=== PATIENT | male | born 1930 | race African-American/Black ===

== ENCOUNTER → 2016-06-14 | Outpatient (CLI) | payer MEDICARE, OTHER ==
[~2016-06-14] MED LIST: AGGRENOX PO; ALBUTEROL17 GM INH; ANUSOL SUPP1 SUPP PR; APRESOLINE PO; ARICEPT PO; ARTHRITIS MED; ASPIRIN81 MG PO; ATORVASTATIN CA10 MG; AVADART; AVODART0.5 MG PO; BIPAP; BLOOD PRESSURE; CALCIUM 500 + D1 TAB PO; CLONIDINE PO; COLACE PO; COMBIVENT U/D3 M3; DARVOCET-N 1001 TAB PO; ESTER C PO; FERROUS SULFATE PO; FLOMAX0.4 MG PO; FOLIC ACID PO; HYDROCODON-ACE1 EAC5 PO; JANUVIA PO; KLONOPIN PO; LASIX PO; LASIX20 MG PO; LIPITOR PO; LISINOPRIL PO; LOPRESSOR PO; MIRALAX255 GM PO; NABUMETONE PO; NASONEX17 GM; NEXIUM PO; NORVASC PO; OYSTER CALCIUM500 MG PO; PLAVIX PO; PROCTOFOAM-HC 110 GM RC; PROSCAR5 MG; QVAR7.3 G1 IH; RISPERIDONE PO; SLOW RELEASE47.5 MG; SODIUM BIC; SYNTHROID PO; VITAMIN C PO; VITAMIN D2400 UNIT; VITAMIN D31 GM; ZYRTEC PO; [UNRECOGNIZED DRUG - REMARK]
--- NOTE | ~2016-06-14 | CR63 ---
[facility]. [facility] A Service of [facility] & [facility] RADIOLOGY TEXT RESULTS PATIENT: ANASTASIYA FELIPE LOCATION: [facility] : 30 UNIT #: [id number] AGE: [address]: Barrett Garcia MD SEX: M ORDER DR: [id number] [place] [id number] O MR#: [id number] Acc #: [id number] NAME: ANASTASIYA FELIPE : 1930 SEX: M STUDY DATE/TIME: 06/14/2016 18:46 UNIT: [facility] ROOM: STUDY DESCRIPTION: CR Chest 2 View Attending Physician: Barrett Garcia M.D. Referring Physician: Barrett Garcia M.D. Ordering Physician: Barrett Garcia M.D. Primary Care Physician: Oscar Null Jr., M.D. MEDICAL IMAGING REPORT This report is preliminary unless electronic signature is present. EXAM Chest INDICATION Dialysis patient. Annual chest radiograph. Hypertension. Cardiomegaly. FINDINGS PA and lateral views of the chest compared to 04/16/2015. The heart is at the upper limits of normal, unchanged. Mild prominence of the thoracic aorta is also unchanged. Lungs are hyperinflated compatible with obstructive lung disease. No focal consolidation. Mild chronic interstitial airspace opacities are similar to the prior exam. IMPRESSION Background COPD. No acute findings. Dictated by... Chacorta Hua M.D. THIS IS AN ELECTRONICALLY VERIFIED REPORT Chacorta Hua M.D. at 06/16/2016 2:11 PM Johny TD: 06/15/2016 17:54 JOB #: [id number] MEDICAL IMAGING REPORT Page 1 of 1
== END | disposition home or self-care (01) ==
LOC: SRAD 18:34
DX: Z11.1 Encounter for screening for respiratory tuberculosis (principal)
CPT/HCPCS: 71020

== ENCOUNTER 2016-06-17 22:18 | Emergency (ER) | payer MEDICARE, OTHER ==
--- NOTE | ~2016-06-17 | CR173 ---
[facility] A Service of [facility] RADIOLOGY TEXT RESULTS PATIENT: ANASTASIYA FELIPE LOCATION: SED : 30 UNIT #: [id number] AGE: [address]: Lg Griffin MD SEX: M ORDER DR: [id number] [place] [id number] E MR#: [id number] Acc #: [id number] NAME: ANASTASIYA FELIPE : 1930 SEX: M STUDY DATE/TIME: 06/17/2016 22:33 UNIT: SED ROOM: STUDY DESCRIPTION: CR Knee 3 Views Rt Attending Physician: Lg Griffin M.D. Ordering Physician: Lg Griffin M.D. Primary Care Physician: Oscar Null Jr., M.D. MEDICAL IMAGING REPORT This report is preliminary unless electronic signature is present. EXAM Right knee series, 06/17/2016 INDICATION Right knee pain after a fall today. PROCEDURE 3 views right knee. COMPARISON None. FINDINGS Severe tricompartmental arthrosis. No acute fracture or dislocation. Small joint effusion. IMPRESSION 1. No acute findings. 2. Significant tricompartmental arthrosis and a small joint effusion. Dictated by... Santos White M.D. THIS IS AN ELECTRONICALLY VERIFIED REPORT Santos White M.D. at 06/18/2016 10:24 PM EED/litzy TD: 06/18/2016 02:07 JOB #: [id number] [facility] A Service of [facility] RADIOLOGY TEXT RESULTS PATIENT: ANASTASIYA FELIPE LOCATION: SED : 30 UNIT #: [id number] AGE: [address]: Lg Griffin MD SEX: M ORDER DR: MEDICAL IMAGING REPORT Page 1 of 1
== END 2016-06-17 23:48 | disposition home or self-care (01) ==
LOC: SED 22:18
DX: M17.11 Unilateral primary osteoarthritis, right knee (principal); Z86.73 Personal history of transient ischemic attack (TIA), and cerebral infarction without residual deficits; I12.0 Hypertensive chronic kidney disease with stage 5 chronic kidney disease or end stage renal disease; N18.6 End stage renal disease; W19.XXXA Unspecified fall, initial encounter; Y92.009 Unspecified place in unspecified non-institutional (private) residence as the place of occurrence of the external cause
CPT/HCPCS: 29505; 73562; 99283